=== PATIENT | female | born 1990 | race American Indian/Alaskan Native ===

== ENCOUNTER 2023-07-07 12:29 | Outpatient (CLI) | payer OTHER ==
--- NOTE | 2023-07-07 15:19 | XRAY Report ---
PROCEDURE: Chest 2 View X-Ray INDICATIONS: COUGH TECHNIQUE: 2 views of the chest were acquired. COMPARISON: None. FINDINGS: Surgical changes and devices: None. Lungs and pleura: No pleural effusions or pneumothorax. Lungs are clear. Mediastinum: Mediastinal contours appear normal. Heart size is normal. Bones and chest wall: No suspicious bony lesions. Overlying soft tissues appear unremarkable. IMPRESSION: No acute cardiopulmonary process. Reviewed by: Marion Ceballos MD, PhD on 07/07/2023 3:17 PM PST Approved by: Marion Ceballos MD, PhD on 07/07/2023 3:17 PM PST Station ID: [id number]
== END 2023-07-07 12:30 | disposition home or self-care (01) ==
LOC: DI 12:29
PROVIDERS: ATTEND Family Medicine
DX: R05.8 Other specified cough (principal); R05.9 Cough, unspecified

== ENCOUNTER 2023-10-30 09:44 | Outpatient (CLI) | payer OTHER ==
--- NOTE | 2023-11-02 06:51 | MRI Report ---
PROCEDURE: Lumbar Spine WO INDICATIONS: LOW BACK PAIN TECHNIQUE: Noncontrast sagittal T1 spin echo and T2 fast echo, sagittal STIR, axial T1 and T2 fast spin echo thr ough the lumbar spine. In cases with scoliosis, additional coronal T2 fast spin echo may be performe d. COMPARISON: None. FINDINGS: Image quality: Excellent. Alignment and Curvature: There is normal bony alignment. Bone Marrow: Marrow is of normal overall signal. No acute vertebral body compression fractures. Chr onic mild anterior vertebral body height loss of T12. Spinal Cord: Conus medullaris terminates at the L1 level. Visualized cord demonstrates normal signa l and size. Paraspinous Soft Tissues: No paravertebral masses. T12-L1: Normal in appearance. L1-L2: Normal in appearance. L2-L3: Normal in appearance. L3-L4: Normal in appearance. L4-L5: Early facet hypertrophy. Minimal disc bulge. No canal stenosis or foraminal stenosis. L5-S1: Annulus tear. Minimal disc bulge. Early facet hypertrophy. No canal stenosis or foraminal st enosis. IMPRESSION: 1. Early lower lumbar facet hypertrophy. 2. Annulus tear plus minimal disc bulge at L5-S1. 3. No canal stenosis or foraminal stenosis. Reviewed by: Lino Cartwright MD on 11/02/2023 6:50 AM PDT Approved by: Lino Cartwright MD on 11/02/2023 6:50 AM PDT Station ID: [id number]
== END 2023-10-30 09:45 | disposition home or self-care (01) ==
LOC: DI 09:44
PROVIDERS: ATTEND Nurse Practitioner Family
DX: M47.816 Spondylosis without myelopathy or radiculopathy, lumbar region (principal); M51.36 Other intervertebral disc degeneration, lumbar region